=== PATIENT | female | born 1960 | race Caucasian/White ===

== ENCOUNTER 2022-08-12 09:41 | Emergency (ER) | payer OTHER, SELFPAY ==
[2022-08-12] VITALS (8 sets, daily range): BP systolic 113–142; BP diastolic 66–89; PULSE 56–90; RESP 17–18; TEMP 36.8; O2SAT 95–99; BMI 22.6
--- NOTE | 2022-08-12 10:20 | ECG_ITS ---
[facility] Test Date: 2022-08-12 Pat Name: Bita Ramachandran Department: Room: Gender: Female Game Manager: : 1960 Requested By: Saud Sainz Order Number: [id number] Lara MD: Alayna Vieira M.D. Measurements Intervals [place] Rate: 68 P: 48 FL: 124 QRS: 66 QRSD: 83 T: 71 QT: 373 QTc: 399 Interpretive Statements SINUS RHYTHM LOW QRS VOLTAGE IN PRECORDIAL LEADS [QRS DEFLECTION < 1.0 mV IN CHEST LEADS] SEPTAL MYOCARDIAL INFARCTION , OF INDETERMINATE AGE [40+ ms Q WAVE IN V1/V2] No previous ECG available for comparison Electronically Signed On 08-12-2022 16:46:18 ROBOT OPERATOR by Alayna Vieira M.D. [email or web address]
--- NOTE | 2022-08-12 10:54 | ED_ITS ---
HPI - Dizziness General: Chief Complaint: Dizziness Stated Complaint: past head injury, dizziness, weakness Time Seen by Provider: 08/12/22 10:18 Source: patient Mode of arrival: ambulatory History of Present Illness: HPI Narrative: 7-year-old female presents to the emergency room with complaints of light headedness and dizziness vertiginous symptoms. She fell and had a concussion on July 17 she has been evaluated by her primary care physician and at the ER since that time had a CT done previously at [facility] that she was told was normal. This morning she said her vertigo symptoms were worse. She has been taking meclizine for it. MD elicited complaint: vertigo Pertinent past history: recent head injury (1 month ago) Description: room spinning History of similar symptoms: Yes Exacerbating factors: change in body position Relieving factors: remaining still Associated symptoms: Reports headache(s); Denies change in hearing, chest pain, chills, cough, diaphoresis, ear discharge, ear pressure, fevers/chills, malaise, nausea, nasal congestion, palpitations, rash, short of breath, syncope, tinnitus, vomiting or weakness Review of Systems Const: Denies: fever(s), chills, fatigue, malaise or diaphoresis Eyes: Denies: change in vision ENMT: Denies: ear discharge, change in hearing, tinnitus or nasal congestion Card: Denies: chest pain, palpitations or syncope Resp: Denies: dyspnea, productive cough or non-productive cough GI: Denies: abdominal pain, nausea or vomiting : Denies: flank pain, difficulty voiding, dysuria, urinary frequency or urinary urgency Skin/Breast: Denies: rash or pruritus Neuro: Reports: headache(s) and difficulty walking PFS ED PFSH: Medical History (Updated 08/12/22 @ 12:33 by Saud Sheriff DO) No significant past medical history Surgical History (Updated 08/12/22 @ 10:57 by Saud Sheriff DO) No pertinent past surgical history Social History (Updated 08/12/22 @ 10:57 by Saud Sheriff DO) Smoking and tobacco status: never smoked Physical Exam Const: GENERAL APPEARANCE: cooperative and comfortable ORIENTATION/CONSCIOUSNESS: Yes awake, Yes oriented to person, Yes oriented to place and Yes oriented to time HENMT: COMMON NORMALS: normocephalic, atraumatic, hearing grossly normal bilaterally, external ears normal, EAC's normal, TM's normal bilaterally, Normal nasal mucous membranes and turbinates present, moist oral mucous membranes and oropharynx normal HEAD & SCALP: normocephalic and atraumatic NOSE: Normal nasal mucous membranes and turbinates present EXTERNAL EAR: Yes external ears normal EXTERNAL AUDITORY CANAL: EAC's normal TYMPANIC MEMBRANE: TM's no rmal bilaterally Eye: COMMON NORMALS: Equal, round and reactive pupils present, EOMs intact bilaterally, conjunctivae normal and no scleral icterus CONJUNCTIVA: Yes conjunctivae normal PUPIL: Yes Equal, round and reactive pupils present Neck/C-Spine: COMMON NORMALS: full ROM, no lymphadenopathy, supple and no JVD Lymph: LYMPHATIC: no lymphadenopathy noted and no lymphedema noted Resp: COMMON NORMALS: normal respiratory effort, No retractions, No use of accessory muscles and clear to auscultation bilaterally AUSCULTATION: clear to auscultation bilaterally Cardio: COMMON NORMALS: no JVD, regular rate, regular rhythm and No murmurs present (Cardio) RATE: regular rate RHYTHM: regular rhythm GI: COMMON NORMALS: Soft to palpation and No hepatosplenomegaly present AUSCULTATION: Yes normoactive bowel sounds PALPATION: Yes Soft to palpation, No Tenderness to palpation present (GI), No Guarding due to palpation present (GI) and Yes No hepatosplenomegaly present Extremity: COMMON NORMALS: normal to inspection, capillary refill normal, no clubbing, cyanosis or edema, no calf tenderness and no pedal edema Neuro: SENSORIUM/ORIENTATION: Yes oriented to person, Yes oriented to place and Yes oriented to time OTHER: Grandmother Phyllis 13 intact no focal neurologic deficits are noted. No ataxia no dysarthria Skin: COMMON NORMALS: no rashes or lesions noted GENERAL SKIN EXAM: no rashes or lesions noted Course Vital Signs: Vital signs: Vital Signs Temperature 98.2 F 08/12/22 09:50 Pulse Rate 62 08/12/22 12:48 Respiratory Rate 17 08/12/22 12:48 Blood Pressure 113/66 08/12/22 12:48 Pulse Oximetry 97 08/12/22 12:48 Oxygen Delivery Me thod 08/12/22 12:30 [facility] - Dizziness Medical Decision Making Patient is approximately 4 weeks post concussion with headache and vertiginous symptoms. She has no recurrent or new head trauma since the original fall. She has had a CT of her head at [facility]. We did a copy of that and reviewed it there is no evidence of acute bleed she has no further focal neurologic deficits at this time. Do not believe repeat CT of the head is needed at this time. I do think she may benefit from an MRI. Recommend that she get an MRI in the outpatient setting and follow-up with neurology. We offered her Ativan during the ER visit and for prescription to use for vertigo since she is failing meclizine. She declined these. Advised her if she changed her mind follow-up with her primary care doctor or return to the emergency room. Medical Records I reviewed the patient's medical records. Lab Data I reviewed the patient's lab results. 08/12/22 11:05 08/12/22 11:05 Laboratory Results WBC 6.7 10^3/uL (4.0-10.0) 08/12/22 11:05 RBC 4.75 10^6/uL (4.1-5.3) 08/12/22 11:05 Hgb 14.5 g/dL (11.5-15.3) 08/12/22 11:05 Hct 43.6 % (37.0-47.0) 08/12/22 11:05 MCV 91.8 fl (81-99) 08/12/22 11:05 MCH 30.5 pg (28.0-34.0) 08/12/22 11:05 MCHC 33.3 g/dL (30.0-36.0) 08/12/22 11:05 RDW 13.2 % (12.1-15.1) 08/12/22 11:05 Plt Count 254 10^3/cmm (130-400) 08/12/22 11:05 MPV 10.0 fL (7.4-10.4) 08/12/22 11:05 Neut % (Auto) 56.3 % 08/12/22 11:05 Lymph % (Auto) 37.1 % 08/12/22 11:05 [place] % (Auto) 5.8 % 08/12/22 11:05 Eos % (Auto) 0.4 % 08/12/22 11:05 Baso % (Auto) 0.3 % 08/12/22 11:05 Neut # (Auto) 3.77 10^3/uL (1.8-7.7) 08/12/22 11:05 Lymph # (Auto) 2.5 10^3/uL (0.8-4.8) 08/12/22 11:05 [place] # (Auto) 0.4 10^3/uL (0.2-0.9) 08/12/22 11:05 Eos # (Auto) 0.0 10^3/uL (0.0-0.8) 08/12/22 11:05 Baso # (Auto) 0.0 10^3/uL (0.0-0.1) 08/12/22 11:05 Nucleated RBC % (auto) 0 % 08/12/22 11:05 Nucleated RBCs # 0.0 /100WBC 08/12/22 11:05 Sodium 141 mmol/L (136-145) 08/12/22 11:05 Potassium 3.9 mmol/L (3.5-5.1) 08/12/22 11:05 Chloride 108 mmol/L (98-107) H 08/12/22 11:05 Carbon Dioxide 22 mmol/L (22-29) 08/12/22 11:05 Anion Gap 14.9 (5-19) 08/12/22 11:05 BUN 7 mg/dL (8-23) L 08/12/22 11:05 Creatinine 0.5 mg/dL (0.5-0.9) 08/12/22 11:05 GFR Calculation 125.9 mL/min (90-130) 08/12/22 11:05 Glucose 92 mg/dL (65-115) 08/12/22 11:05 Calculated Osmolality 290 mOsm/kg (285-295) 08/12/22 11:05 Calcium 9.4 mg/dL (8.5-10.5) 08/12/22 11:05 Discharge Plan Discharge Patient Disposition: Home Clinical Impression: Concussion, Vertigo Prescriptions: No Action Zyrtec 10 mg Tablet 10 mg PO BEDTIME meclizine 12.5 mg Tablet 25 mg PO BID Aspir-81 81 mg Tablet,Delayed Release (Dr/Ec) 81 mg PO BEDTIME Synthroid 88 mcg tablet 88 mcg PO QAM Vitamin D3 25 mcg (1,000 unit) Capsule 25 mcg PO DAILY@13 magnesium 200 mg tablet 200 mg PO DAILY@13 Multivitamin 50 Plus Tablet 1 tab PO DAILY@13 Discharge Orders: Discharge ED (Routine); Ordered 08/12/22 Ordered By: Saud Sheriff Referrals: Bebo Stewart, DIGITAL MARKETING ANALYST [Primary Care Provider] - Patient Instructions: Opioid Safety, Pain Management Activity Restrictions/Additional Instructions: You were seen today for vertiginous symptoms that resulted from a concussion. We reviewed the CT that was done in the ER previously it was negative. Recommend that he have an MRI and a consultation with neurology. He declined the medications offered for vertiginous symptoms, if you change your mind you are welcome to return at any time. Case management will also make arrangements for you to establish with a primary care physician. Coding Level of Care Code ED Tool Design Draftsperson for Anjumg Fwd Exam Comprehensive
[2022-08-12 11:15] LABS: Basophils % 0.3 %; Eosinophils % 0.4 %; Hematocrit 43.6 % (37.0-47.0); Hemoglobin 14.5 g/dL (11.5-15.3); Lymphocytes # 2.5 10^3/uL (0.8-4.8); Lymphocytes % 37.1 %; Mean Corpuscular HGB Conc 33.3 g/dL (30.0-36.0); Mean Corpuscular Hemoglobin 30.5 pg (28.0-34.0); Mean Corpuscular Volume 91.8 fl (81-99); Monocytes # 0.4 10^3/uL (0.2-0.9); Monocytes % 5.8 %; Neutrophils # 3.77 10^3/uL (1.8-7.7); Neutrophils % 56.3 %; Nucleated Red Blood Cells % 0 %; Platelet Count 254 10^3/cmm (130-400); Red Blood Count 4.75 10^6/uL (4.1-5.3); Red Cell Distribution Width 13.2 % (12.1-15.1); White Blood Count 6.7 10^3/uL (4.0-10.0)
[2022-08-12 11:43] LABS: Anion Gap 14.9 (5-19); Blood Urea Nitrogen 7 mg/dL (8-23); Calcium 9.4 mg/dL (8.5-10.5); Carbon Dioxide 22 mmol/L (22-29); Chloride 108 mmol/L (98-107); Creatinine Clr Calc Pharmacy 115.1867; Glomerular Filtration Rate 125.9 mL/min (90-130); Glucose 92 mg/dL (65-115); Osmolality Calculated 290 mOsm/kg (285-295); Potassium 3.9 mmol/L (3.5-5.1); Sodium 141 mmol/L (136-145)
--- NOTE | 2022-08-12 13:46 | DCPLANNER ---
Addendum entered by Romi Cortez 10/13/22 17:18: Patient had an appointment with neurology - patient did attend Patient had an MRI - patient did attend Addendum entered by Romi Cortez 08/17/22 12:17: Patient has a follow up appointment scheduled for Tuesday, September 27, 2022 at 11:[address] Oquendo at neurology. Clinic will call patient with appointment information. Original Note: quality assurance manager had message to schedule an outpatient MRI for patient. quality assurance manager faxed signed order to centralized scheduling, who will call patient with appointment information. quality assurance manager had message to schedule a follow up appointment for patient with neurology. quality assurance manager sent patients information to the front office staff at neurology. Patients information will be printed and reviewed. Clinic will call patient with appointment information. quality assurance manager had message to speak with patient about getting established with a primary care physician. Patient stated that she sees a physician at the [facility].
== END 2022-08-12 12:49 | disposition home or self-care (01) ==
PROVIDERS: Emergency Provider Family Medicine; PCP Nurse Practitioner
DX: S06.0XAA Concussion with loss of consciousness status unknown, initial encounter (principal); R42 Dizziness and giddiness; Z79.82 Long term (current) use of aspirin; W19.XXXA Unspecified fall, initial encounter
CPT/HCPCS: 80048; 85025; 93005; 99284

== ENCOUNTER 2022-09-27 07:37 | Outpatient (CLI) | payer OTHER, SELFPAY ==
--- NOTE | 2022-09-27 | MR_ITS ---
WS: [id number] MRI HEAD WITHOUT CONTRAST TECHNIQUE: Sagittal T1, T2 axial, T2 axial FLAIR, axial and coronal T1 images, axial susceptibility w eighted imaging, axial diffusion weighted images, and coronal T2 images were obtained. CLINICAL INFORMATION: CONCUSSION COMPARISON: None. FINDINGS: No evidence of restricted diffusion to suggest acute ischemia. Ventricular system and basal cisterns are patent. Minimal small vessel changes. Mild parenchymal volume loss. Normal posterior fossa. Sharmila l vascular flow voids at the skull base. No extra-axial fluid collections. No evidence of mass or mas s effect. . Normal posterior nasopharynx and parapharyngeal fat. No hemosiderin on the susceptibly weighted images. Normal optic chiasm and pituitary infundibulum. Te mporal lobes and hippocampal formations are normal in appearance. Paranasal sinuses are well aerated. Small amount of fluid in the sphenoid sinuses. Mastoid air cells well aerated. MR/MR head wo con* [id number] IMPRESSION: 1. No evidence of restricted diffusion to suggest acute ischemia. 2. Mild small vessel changes with mild parenchymal volume loss. 3. Small amount of fluid in the sphenoid sinus. Mastoid air cells well aerated . 4. No hemosiderin on susceptibly weighted images.
== END 2022-09-27 07:38 | disposition home or self-care (01) ==
PROVIDERS: PCP Physician Assistant; Visit Provider Family Medicine
DX: S06.0XAA Concussion with loss of consciousness status unknown, initial encounter (principal); X58.XXXA Exposure to other specified factors, initial encounter
CPT/HCPCS: 70551